=== PATIENT | male | born 2000 | race Caucasian/White ===

== ENCOUNTER 2023-11-18 12:02 | Emergency (ER) | payer OTHER ==
[~2023-11-18] VITALS: Ht 175.3 cm; Wt 77.3 kg
[2023-11-18 12:19] VITALS: BP 130/80; TEMP 97.4; O2SAT 99
[2023-11-18] MEDS: PERCOCET 5MG/325MG TAB PO ONE (12:39)
[2023-11-18] MEDS ORDERED: LIDOCAINE 2% MDV 20ML VIAL SC ONE (15:20)
[2023-11-18] MEDS: ceFAZolin 1GM VIAL IM ONE (15:25)
[2023-11-18] MEDS ORDERED: CEPH500C PO (15:54)
== END 2023-11-18 16:11 | disposition home or self-care (01) ==
LOC: EDBD 12:02 → M ED 12:02
DX: S61.301A Unspecified open wound of left index finger with damage to nail, initial encounter (principal); S62.631B Displaced fracture of distal phalanx of left index finger, initial encounter for open fracture; W23.2XXA Caught, crushed, jammed or pinched between a moving and stationary object, initial encounter; Y92.39 Other specified sports and athletic area as the place of occurrence of the external cause; Y93.B3 Activity, free weights; Y99.9 Unspecified external cause status
CPT/HCPCS: 11760; 12001; 73130; 96372; 99284; J0690